=== PATIENT | female | born 1970 | race Caucasian/White ===

== ENCOUNTER 2021-10-29 14:21 | Emergency (ER) | payer OTHER, SELFPAY ==
--- NOTE | ~2021-10-29 | XR_ITS ---
EXAMINATION: XR chest 1V portable INDICATION: Shortness of breath, COVID 19 positive TECHNIQUE: Portable AP chest at 1446 hours COMPARISON: None available FINDINGS: There are airspace opacities of the mid and lower lung zones, right greater than left. No p leural effusion or pneumothorax is identified. The cardiomediastinal silhouette is normal. IMPRESSION: 1. Airspace opacities of the mid and lower lung zones, consistent with COVID 19 pneumonia. Reviewed, dictated and finalized at location F. O GAME ENGINEER
--- NOTE | ~2021-10-29 | CT_ITS ---
EXAMINATION: CTA chest PE protocol DATE: 10/29/2021 16:08 INDICATION: Shortness of breath, COVID 19 positive TECHNIQUE: Computed tomography angiography (CTA) of the chest was performed with 100 mL Omnipaque-350 intravenous contrast timed to evaluate the pulmonary arteries. Coronal maximum intensity projection 3D-reconstructions were created by the technologist. The dose-length product (DLP) was 682.36 mGy-cm. Automated exposure control and iterative reconstruction technique were employed. COMPARISON: None. FINDINGS: The pulmonary arteries are well-opacified. No pulmonary embolism is identified. There are groundglass opacities with a mid and lower lung zone predominance. No pleural effusion or pneumothora x is identified. The heart size is normal. There is mild mediastinal and bilateral hilar lymphadenopa thy, likely reactive. There is mild thoracic spondylosis. IMPRESSION: 1. No pulmonary embolus identified. 2. Groundglass opacities with a mid and lower lung zone predominance, consistent with COVID 19 pneumo edu. Reviewed, dictated and finalized at location F. NAILER IMPRESSION: 1. No pulmonary embolus identified. 2. Groundglass opacities with a mid and lower lung zone predominance, consisten t with COVID 19 pneumonia.
[2021-10-29 14:28] VITALS: BP 147/88; PULSE 115; RESP 14; TEMP 36.8; O2SAT 97
[2021-10-29 14:41] VITALS: BP 143/77; PULSE 100; RESP 18; O2SAT 96
--- NOTE | 2021-10-29 14:42 | ECG_ITS ---
Measurements Intervals [place] Rate: 102 P: 34 DC: 150 QRS: 5 QRSD: 70 T: 2 QT: 309 QTc: 404 Interpretive Statements SINUS TACHYCARDIA BORDERLINE T WAVE ABNORMALITY- INFERIOR LEADS BASELINE ARTIFACT- I, II, III, AVR, AVL, AVF BORDERLINE ECG Electronically Signed On 10-29-2021 20:19:47 DATE NIGHT CAREGIVER by Estuardo Burton D.O.
[2021-10-29] MEDS: SODIUM CHLORIDE 0.9% IV 1,000 ML 999 ML IV CONT (15:08)
[2021-10-29 15:10] LABS: Basophils Percent Auto 0.6 % (0.2-1.2); Eosinophils Percent Auto 0.2 % (0-4.4); Hematocrit 45.4 % (37.0-47.0); Hemoglobin 14.9 g/dL (12.0-15.0); Immature Granulocyte Absolute 0.03 K/mm3 (0.00-0.031); Immature Granulocyte Percent A 0.6 % (0-0.5); Lymphocytes Percent Auto 25.6 % (18.3-44.2); Mean Corpuscular HGB Conc 32.8 g/dl (32-36); Mean Corpuscular Hemoglobin 30.2 pg (26-34); Mean Corpuscular Volume 92.1 fl (80-100); Mean Platelet Volume 8.8 fl (7.4-10.4); Monocytes Absolute Auto 0.3 K/mm3 (0.1-0.6); Monocytes Percent Auto 6.2 % (2.6-8.5); Neutrophils Absolute Auto 3.1 K/mm3 (1.3-6.7); Neutrophils Percent Auto 66.8 % (45.5-73.1); Platelet Count Result 183 k/mm3 (150-375); Red Blood Count 4.93 M/mm3 (4.2-5.4); Red Cell Distribution Width 12.5 % (11.5-14.5); White Blood Count 4.7 K/mm3 (4.5-10.0)
[2021-10-29 15:20] LABS: INR 0.9; Prothrombin Time 12.1 Seconds (11.1-14.7)
[2021-10-29 15:21] LABS: Partial Thromboplastin Time 29.7 SECONDS (22.3-36.8)
[2021-10-29 15:23] LABS: D Dimer 0.82 ug/mL (<0.48)
[2021-10-29 15:37] LABS: Alanine Aminotransferase 46 U/L (4-35); Albumin Level 4.2 g/dL (3.5-5.1); Alkaline Phosphatase 81 U/L (38-126); Anion Gap 9 mmol/L (8-16); Aspartate Amino Transferase 46 U/L (14-36); Bilirubin,Total 0.4 mg/dL (0.2-1.3); Blood Urea Nitrogen 9 mg/dL (7-17); Calcium 8.6 mg/dL (8.4-10.2); Carbon Dioxide 25 mmol/L (22-30); Chloride 102 mmol/L (98-107); Estimated CRCL calculation 107 ml/min; Estimated Glomerular Filt Rate > 60; Glucose 114 mg/dL (65-110); Potassium 3.8 mmol/L (3.4-5.0); Sodium 136 mmol/L (137-145)
--- NOTE | 2021-10-29 16:24 | ED.GENADULT ---
HPI - General Adult General Chief complaint: Shortness of Breath/Dyspnea Stated complaint: COVID positive-low O2 Time Seen by Provider: 10/29/21 14:40 Source: RN notes reviewed History of Present Illness HPI narrative: Patient presents emergency department from home for COVID-19. Patient states she tested positive for COVID-19 on 19 October she states that she has been having intermittent fevers as well as nausea and a cough this been nonproductive she also states that she has been feeling short of breath states she did not take any medication for the symptoms 2-day she denies any chest pain abdominal pain vomiting diarrhea or any other symptoms patient states she did not receive the COVID-19 vaccination Related Data Allergies Allergy/AdvReac Type Severity Reaction Status Date / Time No Known Allergies Allergy Unverified 10/04/12 14:47 Review of Systems Review of Systems: Gen.: Reports fevers Eyes: Denies eye pain or visual change ENT: Denies congestion Respiratory: See HPI CV: Denies chest pain or palpitations GI: Denies abdominal pain nausea, emesis or diarrhea Musculoskeletal: Denies back pain or muscle pain Neuro: Denies numbness, tingling, weakness or focal weakness Skin: Denies rash Except as documented, all other systems reviewed and negative PMFSH Past Medical History Medical History (Updated 10/29/21 @ 18:15 by Deo Boswell DO) Patient denies significant medical history Social History Social History (Updated 10/29/21 @ 18:13 by Deo Boswell DO) Smoking status: Never smoker Exam Narrative: APPEARANCE: No acute distress, nontoxic, resting in bed EYES: EOMI HEENT: Normocephalic, atraumatic, OMM RESPIRATORY: No respiratory distress Clear to auscultation bilaterally with no rhonchi wheezing or rales. CARDIOVASCULAR: Regular rate and rhythm without murmurs rubs or gallops. ABDOMINAL: Soft, nontender, nondistended, no rebound or guarding MUSCULOSKELETAl: Moves all extremities. No clubbing, cyanosis or edema. NEURO: Awake and alert. Following commands, speech normal, no focal deficits SKIN:: Warm, dry. No rashes lesions or abrasions PSYCHIATRIC: Normal affect/mood, Course Course Emergency Course: Patient states she is feeling better following medications able to get up and ambulate in ED pulse ox remains in the upper 90s Discussed with patient results of workup and diagnosis. Discussed need for follow-up with primary care, proper use of medication, and reasons to return to the emergency department. Patient understands and agrees to current treatment plan Vital Signs Vital signs: Vital Signs Temperature 98.2 F 10/29/21 14:28 Pulse Rate 115 H 10/29/21 14:28 Respiratory Rate 14 10/29/21 14:28 Blood Pressure 147/88 H 10/29/21 14:28 Pulse Oximetry 97 10/29/21 14:28 Temperature 98.2 F 10/29/21 14:28 Pulse Rate 76 10/29/21 16:58 Respiratory Rate 18 10/29/21 16:58 Blood Pressure 138/62 10/29/21 16:58 Pulse Oximetry 98 10/29/21 16:58 Medical Decision Making MDM Narrative Medical decision making narrative: Patient presents with COVID-19 she CTA shows no pulmonary embolisms oxygen saturations remain in the upper 90s feel the patient safe for discharge to follow-up as an outpatient Vital Signs Vital Signs: Vital Signs Temperature 98.2 F 10/29/21 14:28 Pulse Rate 115 H 10/29/21 14:28 Respiratory Rate 14 10/29/21 14:28 Blood Pressure 147/88 H 10/29/21 14:28 Pulse Oximetry 97 10/29/21 14:28 Temperature 98.2 F 10/29/21 14:28 Pulse Rate 76 10/29/21 16:58 Respiratory Rate 18 10/29/21 16:58 Blood Pressure 138/62 10/29/21 16:58 Pulse Oximetry 98 10/29/21 16:58 Lab Data Result diagrams: 10/29/21 14:55 10/29/21 14:55 Labs: Lab Results 10/29/21 10/29/21 10/29/21 Range/Units 14:55 14:55 14:55 WBC 4.7 (4.5-10.0) K/mm3 RBC 4.93 (4.2-5.4) M/mm3 Hgb 14.9 (12.0-15.0) g/dL Hct 45.4 (3
[2021-10-29 16:58] VITALS: BP 138/62; PULSE 76; RESP 18; O2SAT 98
[2021-10-29] MEDS: ALBUTEROL SULFATE (*SP) AEROSOL 1 PUFF 2 PUFF INHALATION (17:00)
== END 2021-10-29 18:23 | disposition home or self-care (01) ==
PROVIDERS: Emergency Provider Emergency Medicine; PCP Internal Medicine
DX: U07.1 COVID-19 (principal); J12.82 Pneumonia due to coronavirus disease 2019; R00.0 Tachycardia, unspecified; R94.31 Abnormal electrocardiogram [ECG] [EKG]
CPT/HCPCS: 36415; 71045; 71275; 80053; 81025; 85025; 85380; 85610; 85730; 93005; 94640; 96361; 96365; 99284; A9270; J0131; J7030; Q9967